=== PATIENT | female | born 1985 | race African-American/Black ===

== ENCOUNTER 2018-02-10 07:39 | Emergency (ER) | payer OTHER ==
[~2018-02-10] VITALS: Ht 160 cm; Wt 95.0 kg
[~2018-02-10 07:39] MED LIST: DIFL150T PO; DOXY100T OR; KETO10 PO; OXYC-360 PO
[2018-02-10 07:47] VITALS: BP 121/67; PULSE 64; RESP 16; TEMP 98.1; O2SAT 99
[2018-02-10 08:03] VITALS: BP 117/61; PULSE 66; RESP 17; TEMP 98; O2SAT 100
[2018-02-10] MEDS ORDERED: SODIUM CHLOR 0.9% 1000 ML INJ 1,000 ML IV SCH (08:11)
[2018-02-10] MEDS ORDERED: SODIUM CHLORIDE 0.9% FLUSH 10 ML FLUSH IV FLUSH PRN (08:15)
[2018-02-10] MEDS ORDERED: ONDANSETRON HCL 4 MG/2 ML VIAL IVP ONE (08:15)
[2018-02-10] MEDS ORDERED: KETOROLAC TROMETHAMINE 30 MG/ML (IVP) VIAL IVP ONE (08:15)
[2018-02-10 08:22] VITALS: BP 117/61; PULSE 66; RESP 17; TEMP 98; O2SAT 100
[2018-02-10 09:00] LABS: BASOPHIL % 0.7 % (0.0-2.0); EOSINOPHIL # 0.1 TH/MM3 (0-0.4); EOSINOPHIL % 1.9 % (0.0-4.0); HEMATOCRIT 41.4 % (35.0-46.0); HEMOGLOBIN 14.2 GM/DL (11.6-15.3); LYMPH % 32.7 % (9.0-44.0); LYMPHOCYTE # 1.7 TH/MM3 (1.0-4.8); MEAN CELL VOLUME 91.3 FL (80.0-100.0); MEAN CORPUSCULAR HEMOGLOBIN 31.2 PG (27.0-34.0); MEAN CORPUSCULAR HGB CONC 34.2 % (32.0-36.0); MEAN PLATELET VOLUME 7.9 FL (7.0-11.0); MONO % 4.9 % (0.0-8.0); MONOCYTE # 0.2 TH/MM3 (0-0.9); NEUT % 59.8 % (16.0-70.0); PLATELET COUNT 224 TH/MM3 (150-450); RED BLOOD COUNT 4.54 MIL/MM3 (4.00-5.30); RED CELL DISTRIBUTION WIDTH 13.4 % (11.6-17.2); WHITE BLOOD COUNT 5.1 TH/MM3 (4.0-11.0)
[2018-02-10 09:06] LABS: INTERNATIONAL NORMALIZED RATIO 1.1 RATIO; PROTHROMBIN TIME - PATIENT 10.7 SEC (9.8-11.6)
[2018-02-10 09:08] LABS: BACTERIA, URINE RARE /hpf; BILIRUBIN, URINE NEG (NEG); BLOOD, URINE NEG (NEG); GLUCOSE,URINE NEG (NEG); KETONE, URINE NEG (NEG); MUCUS URINE FEW /lpf (OCC); NITRITE,URINE NEG (NEG); SQUAMOUS EPITHELIAL CELL URINE 3 /hpf (0-5); URINE COLOR YELLOW (YELLW/STRAW); URINE LEUKOCYTE ESTERASE NEG (NEG)
[2018-02-10 09:21] LABS: ALBUMIN 3.5 GM/DL (3.4-5.0); AST (GOT) 18 U/L (15-37); BICARBONATE 24.7 MEQ/L (21.0-32.0); BLOOD UREA NITROGEN 7 MG/DL (7-18); CALCIUM 7.6 MG/DL (8.5-10.1); CHLORIDE 106 MEQ/L (98-107); CREATININE 0.67 MG/DL (0.50-1.00); GLOMERULAR FILTRATION RATE 125 ML/MIN (>89); GLUCOSE,RANDOM 97 MG/DL (74-106); SODIUM (NA) 138 MEQ/L (136-145)
[2018-02-10 09:23] LABS: ALT (GPT) 16 U/L (10-53)
[2018-02-10 09:25] LABS: ALKALINE PHOSPHATASE 50 U/L (45-117); DIRECT BILIRUBIN ADULT LESS THAN 0.1 MG/DL (0.0-0.2); INDIRECT BILIRUBIN 0.1 MG/DL (0.0-0.8); TOTAL BILIRUBIN ADULT 0.2 MG/DL (0.2-1.0); TOTAL PROTEIN 7.3 GM/DL (6.4-8.2)
[2018-02-10] MEDS ORDERED: IOHEXOL 350 MG/ML 10 ML VIAL (for RAD DIAG) IVCONTRAST ONE (09:45)
--- NOTE | 2018-02-10 10:09 | RADRPT ---
EXAM DATE/TIME: 02/10/2018 09:40 [place] COMPARISON: No previous studies available for comparison. INDICATIONS : Abdominal pain, nausea. IV CONTRAST: 96 cc Omnipaque 350 (iohexol) IV ORAL CONTRAST: No oral contrast ingested. RADIATION DOSE: 13.71 CTDIvol (mGy) MEDICAL HISTORY : None SURGICAL HISTORY : Cervical cerclage ENCOUNTER: Initial ACUITY: 1 day PAIN SCALE: 4/10 LOCATION: Bilateral Abdomen TECHNIQUE: Volumetric scanning of the abdomen and pelvis was performed. Using automated exposure control and ad justment of the mA and/or kV according to patient size, radiation dose was kept as low as reasonably achievable to obtain optimal diagnostic quality images. DICOM format image data is available electro nically for review and comparison. FINDINGS: LOWER LUNGS: The visualized lower lungs are clear. LIVER: Homogeneous density without lesion. There is no dilation of the biliary tree. No calcified gallston es. There is suspected layering sludge within the gallbladder. SPLEEN: Normal size without lesion. PANCREAS: Within normal limits. KIDNEYS: Normal in size and shape. There is no mass, stone or hydronephrosis. ADRENAL GLANDS: Within normal limits. VASCULAR: There is no aortic aneurysm. BOWEL/MESENTERY: The stomach, small bowel, and colon demonstrate no acute abnormality. There is no free intraperitone al air. Trace free fluid in the pelvis. ABDOMINAL WALL: Within normal limits. RETROPERITONEUM: There is no lymphadenopathy. BLADDER: No wall thickening or mass. REPRODUCTIVE: Within normal limits. INGUINAL: There is no lymphadenopathy or hernia. MUSCULOSKELETAL: Within normal limits for patient age. CONCLUSION: 1. Layering sludge versus gallstones within the gallbladder. No biliary ductal dilatation. Small hiat al hernia. Trace free fluid in the pelvis. Piter Roth MD on February 10, 2018 at 10:03 Board Certified Radiologist. This report was verified electronically.
[2018-02-10] MEDS ORDERED: TRAM50TA PO (10:22)
[2018-02-10] MEDS ORDERED: ZOFR4TAB3 SL (10:22)
--- NOTE | 2018-02-10 10:22 | PD ---
HPI Chief Complaint: Abdominal Pain Time Seen by Provider: 07:57 Travel History International Travel<30 days: No Contact w/Intl Traveler<30days: No Traveled to known affect area: No History of Present Illness HPI Patient is a 32 year old female who comes in complaining of abdominal pain. She says the pain started this morning and she has been dry heaving. She says the pain is in her LLQ. She denies fever or chills. She says she also gets some pain to the RUQ. She says it feels like pain from her gallstones. She has not taken anything for the pain. She says nothing seems to make the pain better or worse. She says she moved her bowels yesterday and it was normal. She denies cough or cold or dysuria. Severity is mild to moderate. [facility] Past Medical History Medical History: Denies Significant Hx Tetanus Vaccination: Unknown ?: Not LMP: 01/30/18 : 2 Miscarriage: 2 Dilation and Curettage (D&C): Yes Past Surgical History Other Surgery: Yes (CERCLAGE ) Social History Alcohol Use: Yes (OCCASIONAL) Tobacco Use: No Substance Use: No Allergies-Medications (Allergen,Severity, Reaction): Coded Allergies: No Known Allergies (Verified Adverse Reaction, Unknown, 02/10/18) Reported Meds & Prescriptions Reported Meds & Active Scripts Active No Active Prescriptions or Reported Medications Review of Systems Except as stated in HPI: all other systems reviewed are Neg General / Constitutional: No: Fever, Chills Eyes: No: Blurred Vision HENT: No: Headaches, Lightheadedness Cardiovascular: No: Chest Pain or Discomfort Respiratory: No: Shortness of Breath Gastrointestinal: Positive: Nausea, Abdominal Pain Genitourinary: No: Dysuria Musculoskeletal: No: Myalgias Skin: No Rash, No Change in Pigmentation Neurologic: No: Weakness, Dizziness Physical Exam Narrative GENERAL: Awake and alert, in no acute distress. SKIN: Focused skin assessment warm/dry. No wounds or signs of infection. HEAD: Atraumatic. Normocephalic. EYES: Pupils equal and round. No scleral icterus. ENT: Mucous membranes pink and moist. NECK: Trachea midline. No JVD. CARDIOVASCULAR: Regular rate and rhythm. No murmur appreciated. RESPIRATORY: No accessory muscle use. Clear to auscultation. Breath sounds equal bilaterally. GASTROINTESTINAL: Abdomen soft, nondistended. Tender to palpation of the LLQ and RUQ. No rebound or guarding. MUSCULOSKELETAL: No obvious deformities. No clubbing. No cyanosis. No edema. NEUROLOGICAL: Awake and alert. No obvious cranial nerve deficits. Motor grossly within normal limits. Normal speech. PSYCHIATRIC: Appropriate mood and affect; insight and judgment normal. Data Data Last Documented VS Vital Signs Date Time Temp Pulse Resp B/P (MAP) Pulse Ox O2 Delivery O2 Flow Rate FiO2 02/10/18 08:22 98.0 66 17 117/61 (79) 100 Room Air Orders Orders Basic Metabolic Panel (Bmp) (02/10/18 08:11) Complete Blood Count With Diff (02/10/18 08:11) Lipase (02/10/18 08:11) Prothrombin Time / Inr (Pt) (02/10/18 08:11) Act Partial Throm Time (Ptt) (02/10/18 08:11) Urinalysis - C+S If Indicated (02/10/18 08:11) Ct Abd/Pel W Iv Contrast(Rout) (02/10/18 08:11) Iv Access Insert/Monitor (02/10/18 08:11) Ecg Monitoring (02/10/18 08:11) Oximetry (02/10/18 08:11) Ondansetron Inj (Zofran Inj) (02/10/18 08:15) Sodium Chlor 0.9% 1000 Ml Inj (Ns 1000 M (02/10/18 08:11) Sodium Chloride 0.9% Flush (Ns Flush) (02/10/18 08:15) Ketorolac Inj (Toradol Inj) (02/10/18 08:15) Ed Urine Pregnancytest Poc (02/10/18 08:11) Hepatic Functional Panel (02/10/18 08:11) Iohexol 350 Inj (Omnipaque 350 Inj) (02/10/18 09:45) Labs Laboratory Tests Test 02/10/18 08:20 White Blood Count 5.1 TH/MM3 Red Blood Count 4.54 MIL/MM3 Hemoglobin 14.2 GM/DL Hematocrit 41.4 % Mean Corpuscular Volume 91.3 FL Mean Corpuscular Hemoglobin 31.2 PG Mean Corpuscular Hemoglobin Concent 34.2 % Red Cell Distribution Width 13.4 % Platelet Count 224 TH/MM3 Mean Platelet Volume 7.9 FL Neutrophils (%) (Auto) 59.8 % Lymphocytes (%) (Auto) 32.7 % Monocytes (%) (Auto) 4.9 % Eosinophils (%) (Auto) 1.9 % Basophils (%) (Auto) 0.7 % Neutrophils # (Auto) 3.0 TH/MM3 Lymphocytes # (Auto) 1.7 TH/MM3 Monocytes # (Auto) 0.2 TH/MM3 Eosinophils # (Auto) 0.1 TH/MM3 Basophils # (Auto) 0.0 TH/MM3 CBC Comment DIFF FINAL Differential Comment Prothrombin Time 10.7 SEC Prothromb Time International Ratio 1.1 RATIO Activated Partial Thromboplast Time 27.3 SEC Urine Color YELLOW Urine Turbidity CLEAR Urine pH 7.0 Urine Specific [place] 1.029 Urine Protein TRACE mg/dL Urine Glucose (UA) NEG mg/dL Urine Ketones NEG mg/dL Urine Occult Blood NEG Urine Nitrite NEG Urine Bilirubin NEG Urine Urobilinogen 2.0 MG/DL Urine Leukocyte Esterase NEG Urine RBC LESS THAN 1 /hpf Urine WBC 1 /hpf Urine Squamous Epithelial Cells 3 /hpf Urine Bacteria RARE /hpf Urine Mucus FEW /lpf Microscopic Urinalysis Comment CULT NOT INDICATED Blood Urea Nitrogen 7 MG/DL Creatinine 0.67 MG/DL Random Glucose 97 MG/DL Total Protein 7.3 GM/DL Albumin 3.5 GM/DL Calcium Level 7.6 MG/DL Alkaline Phosphatase 50 U/L Aspartate Amino Transf (AST/SGOT) 18 U/L Alanine Aminotransferase (ALT/SGPT) 16 U/L Total Bilirubin 0.2 MG/DL Direct Bilirubin LESS THAN 0.1 MG/DL Sodium Level 138 MEQ/L Potassium Level 4.1 MEQ/L Chloride Level 106 MEQ/L Carbon Dioxide Level 24.7 MEQ/L Anion Gap 7 MEQ/L Estimat Glomerular Filtration Rate 125 ML/MIN Indirect Bilirubin 0.1 MG/DL Lipase 106 U/L MDM Medical Decision Making Medical Screen Exam Complete: Yes Emergency Medical Condition: Yes Medical Record Reviewed: Yes Differential Diagnosis Cholecystitis versus cholelithiasis versus GERD versus colitis versus diverticulitis Narrative Course Patient is a 32-year-old female who comes in complaining of abdominal pain. Exam shows tenderness to the left lower quadrant and right upper quadrant. IV established, labs sent. Labs show no acute abnormalities. CT abdomen and pelvis performed shows evidence of gallstones versus sludge no evidence of cholecystitis. Last 24 hours Impressions Abdomen/Pelvis CT 02/10/18 0811 Signed Impressions: Service Date/Time: Saturday, February 10, 2018 09:40 - CONCLUSION: 1. Layering sludge versus gallstones within the gallbladder. No biliary ductal dilatation. Small hiatal hernia. Trace free fluid in the pelvis. Piter Roth MD Patient was given IV fluids, Toradol, Zofran. She reports feeling better. She is advised follow-up with a general surgeon for gallbladder removal on an elective basis. She will be discharged home with prescription for pain medicine as well as Zofran. Advised return anytime for any worsening symptoms. Diagnosis Primary Impression: Abdominal pain Qualified Codes: R10.9 - Unspecified abdominal pain Additional Impression: Gallstone Qualified Codes: K80.20 - Calculus of gallbladder without cholecystitis without obstruction Referrals: Germán Chapin MD call for appointment Patient Instructions: Biliary Colic (ED), General Instructions Additional Instructions: Follow up with a general surgeon. you can take Tylenol or Ibuprofen for pain. Take Tramadol for severe pain. Drink plenty of water and avoid fatty foods. Return to the ED as needed for any worsening symptoms. Scripts Ondansetron Odt (Zofran Odt) 4 Mg Tab 4 MG SL Q6HR Y for Nausea/Vomiting, #12 TAB 0 Refills Prov: Cherry Marrero MD 02/10/18 Tramadol (Tramadol) 50 Mg Tab 50 MG PO Q6H Y for PAIN, #10 TAB 0 Refills Prov: Cherry Marrero MD 02/10/18 Disposition: 01 DISCHARGE HOME Condition: Stable Cherry Marrero MD Feb 10, 2018 10:22
[2018-02-10 10:33] VITALS: BP 118/76
== END 2018-02-10 10:34 | disposition home or self-care (01) ==
LOC: NEPC 07:39
DX: R10.32 Left lower quadrant pain (principal); R10.11 Right upper quadrant pain; K80.20 Calculus of gallbladder without cholecystitis without obstruction
CPT/HCPCS: 74177; 80048; 80076; 81001; 83690; 84703; 85025; 85610; 85730; 96361; 96374; 96375; 99284; J1885; J2405; J7030; Q9967